=== PATIENT | male | born 1990 | race Caucasian/White ===

== ENCOUNTER 2017-03-14 11:52 | Emergency (ER) | payer BC, OTHER ==
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
[2017-03-14] MEDS ORDERED: NORMAL SALINE 1,000 ML IV ONE (12:40)
[2017-03-14 12:53] LABS: Hemoglobin 15.5 gm/dL (13.5-18.0); Mean Cell Volume 87.8 fl (78-100); Mean Corpuscular Hemoglobin 31.6 pg (27-31); Mean Platelet Volume 9.6 fl (6.0-9.5); Neutrophil # 4.3 K/mm3 (1.3-6.0); Neutrophil % 72.2 % (42-75.0); Platelet Count 126 K/mm3 (150-450); Red Cell Distribution Width 12.1 % (11.5-14.0)
[2017-03-14 13:10] LABS: Albumin * 3.7 gm/dl (3.4-5.0); Anion Gap 8.6 mmol/L (6.8-13.8); BUN/Creatinine Ratio 12.5 (9.0-21.6); Ca. Corrected For Albumin 8.8 mg/dL (8.4-10.2); Calcium * 8.9 mg/dL (7.9-10.9); Carbon Dioxide 32.7 mmol/L (24-32.6); Potassium 4.3 mmol/L (3.4-4.6); Total Protein 7.3 gm/dL (6.2-8.2)
[2017-03-14] MEDS ORDERED: ALBUTEROL SULFATE 2.5 MG/3 ML VIAL.NEB IH ONE (13:39)
[2017-03-14] MEDS ORDERED: ALBUTEROL SULFATE 2.5 MG/0.5 ML VIAL.NEB IH ONE (13:40)
[2017-03-14 14:18] VITALS: BP 95/65
== END 2017-03-14 14:46 | disposition home or self-care (01) ==
LOC: ER 11:52
DX: J98.01 Acute bronchospasm (principal); T59.811A Toxic effect of smoke, accidental (unintentional), initial encounter; R07.89 Other chest pain